=== PATIENT | female | born 1935 | race Caucasian/White ===

== ENCOUNTER 2018-10-01 15:15 | Observation (INO) ==
--- NOTE | 2018-10-01 15:39 | ERNOTE ---
Integumentary HPI - Narrative Date of Service: 10/01/18 - General Presenting Symptoms: other - cellulitis Time Seen by Provider: 10/01/18 15:26 Source: patient Exam Limitations: no limitations - Immun/Allergies/Home Medications Allergies/Adverse Reactions: Allergies Allergy/AdvReac Type Severity Reaction Status Date / Time cephalexin [Cephalexin] Allergy Unknown Verified 10/01/18 17:05 Sulfa (Sulfonamide Allergy Unknown Verified 10/01/18 17:05 Antibiotics) [Sulfa(Sulfonamide Antibiotics)] EDOUARD Inhibitors AdvReac Mild FEELS Verified 10/01/18 17:05 [Edouard Inhibitors] STRANGE, OUT OF IT codeine [Codeine] AdvReac Mild Headache Verified 10/01/18 17:05 iodine AdvReac Mild RASH Verified 10/01/18 17:05 latex AdvReac Mild RASH Verified 10/01/18 17:05 Home Medications: HOME MEDICATIONS ALPRAZolam [Xanax] 0.25 mg PO BID PRN 09/19/18 [Last Taken Unknown] Alendronate Sodium 35 mg PO Q7D 09/19/18 [Last Taken 09/30/18] Apixaban [Eliquis] 5 mg PO BID 09/19/18 [Last Taken Unknown] Atorvastatin Calcium [Lipitor] 80 mg PO HS 09/19/18 [Last Taken Unknown] Furosemide 20 mg PO DAILY 09/19/18 [Last Taken Unknown] Levothyroxine Sodium [Synthroid] 125 mcg PO DAILY 09/19/18 [Last Taken Unknown] Loperamide HCl [Anti-Diarrheal] 2 mg PO Q4H PRN 09/19/18 [Last Taken Unknown] Losartan Potassium [Cozaar] 50 mg PO DAILY 09/19/18 [Last Taken Unknown] Metoprolol Tartrate [Lopressor] 50 mg PO DAILY 09/19/18 [Last Taken Unknown] Nystatin/Triamcin [Nystatin-Triamcinolone Cream] 30 gm TOPICAL BID #1 cream..g. 09/19/18 [Last Taken Unknown] Omeprazole 20 mg PO DAILY 09/19/18 [Last Taken Unknown] hydrocortisone 1 % topical cream 1 applic TP BID-TID PRN #28 g 09/26/18 [Last Taken Unknown] Levofloxacin [Levaquin] 500 mg PO DAILY #7 tab 09/27/18 [Last Taken Unknown] - Pain Pain Score: 3 - History of Present Illness Narrative: The patient is a 83 year old female who presents for worsening left lower extremity redness and swelling which has been present for 1 week with progression for 2 days. There are associated symptoms of wound drainage. The patient reports pain to left lower leg, 3/10. There are no alleviating factors. There are no aggravating factors. Previous treatments have included: currently taking Levaquin. The past medical history includes: anxiety, liver cirrhosis, GERD, hepatitis, HTN, hypothyroid and osteoporosis. The social history is negative. The patient has had no ill contacts. Patient states that since yesterday redness, edema and discomfort have increased. Patient states that redness was previously the size of a palm localized to anterior lower leg. Location: Reports: lower extremity Review of Systems - Review of Systems Constitutional: Present: fatigue. Absent: fever, chills EYE: Present: no symptoms reported ENT: Present: no symptoms reported. Absent: ear pain, nasal drainage, sore throat Respiratory: Present: no symptoms reported. Absent: shortness of breath, cough Cardiology: Present: edema. Absent: chest pain Gastrointestinal/Abdominal: Present: nausea, eating less, drinking less. Absent: vomiting, diarrhea Genitourinary: Present: no symptoms reported Musculoskeletal: Present: no symptoms reported Skin: Present: change in color Neurological: Present: no symptoms reported All Other Systems: All systems neg except as marked Medical History (Last Reviewed 10/01/18 @ 15:48 by SHEFALI Le) Osteoporosis (Chronic) Onset Date: 10/21/17 Macular degeneration (Chronic) Onset Date: 05/13/17 Hypothyroidism (Chronic) Hypertension (Chronic) Onset Date: Unknown Hx of pancreatitis (Resolved) Onset Date: 01/29/12 Hepatitis (Resolved) Onset Date: 01/29/12 due to fatty liver GERD (gastroesophageal reflux disease) (Chronic) Onset Date: Unknown Frequent falls (Chronic) Onset Date: Unknown Cirrhosis of liver (Chronic) Onset Date: 07/08/12 Anxiety (Chronic) Onset Date: Unknown Bilateral bunions Callus of foot R 1st MT head, L 1st MT head, 5th MT head pared/Dr. Soto Hammer toes, bilateral History of falling Onychomycosis Toe pain, bilateral Fibrothecoma Onset Date: Unknown History of cholelithiasis Onset Date: 09/19/12 Laceration of hand Onset Date: 11/25/12 Surgical History: Surgical History (Last Reviewed 10/01/18 @ 15:48 by SHEFALI Le) History of bilateral mastectomy Onset Date: Unknown 1986, 1992 History of cataract surgery Onset Date: ~2002 History of colonoscopy Onset Date: ~2009 History of esophagogastroduodenoscopy Onset Date: ~2009 3 polyp removed History of knee replacement Onset Date: ~2006 left 2006, right unknown History of ovarian cystectomy Onset Date: ~1964 tumor on one, cyst on the other History of thyroid surgery Onset Date: ~1995 right lobe removed History of total abdominal hysterectomy Onset Date: ~2015 Family History: Family History (Last Reviewed 10/01/18 @ 15:48 by SHEFALI Le) Father CVA (cerebral vascular accident) Mother CHF (congestive heart failure) Social History: Preferred Language Slovenian Smoking Status Never smoker Alcohol Use none Drug Use none (Last Updated 09/28/18 @ 16:15 by Matilde Soto DPM) No Social History Section defined Progress - Date and Time Seen: Date and Time: 10/01/18 16:24 Discussed results and plan of care with patient for hospital admission with treatment with IV antibiotics. Discussed case with and admit due to progressive cellulitis and failed outpatient treatment. - Results and Orders Patient's Lab Results:: I have reviewed the patient's lab results. - Vital Signs Patient's Vital Signs:: I have reviewed the patient's vital signs. Vital Signs: Vital Signs 10/01/18 15:26 Temperature 36.5 C Pulse Rate 68 Respiratory Rate 16 Blood Pressure 110/71 O2 Sat by Pulse Oximetry 96 - Progress/Reassessment Chief Complaint: Cellulitis Departure Clinical Impression: Cellulitis of left lower leg, Failure of outpatient treatment - Departure Disposition: Still a patient Condition: Good
[2018-10-01 15:55] LABS: Hematocrit 36.3 % (37.0-47.0); Mean Cell Volume 93.1 fl (78-100); Mean Corpuscular Hemoglobin 30.8 pg (27-31); Mean Corpuscular Hgb Conc 33.1 g/dl (32-36); Mean Platelet Volume 8.7 fl (8-12.5); Neutrophil # 4.9 K/mm3 (1.3-6.0); Neutrophil % 67.2 % (42-75.0); Platelet Count 281 K/mm3 (150-450); Red Cell Distribution Width 13.2 % (11.5-14.0); White Blood Count 7.3 K/mm3 (4.0-10.5)
[2018-10-01 16:08] LABS: ALT 17 U/L (19-67); AST 15 U/L (0-48); Albumin * 3.5 gm/dl (3.4-5.0); Alkaline Phosphatase * 54 U/L (50-170); Anion Gap 11.3 mmol/L (6.8-13.8); BUN/Creatinine Ratio 13.9 (9.0-21.6); Bilirubin, Total 0.7 mg/dL (0.0-1.1); Blood Urea Nitrogen 10 mg/dL (3-23); Ca. Corrected For Albumin 8.4 mg/dL (8.4-10.2); Calcium * 8.3 mg/dL (7.9-10.9); Carbon Dioxide 29.2 mmol/L (24-32.6); Chloride 98 mmol/L (97-106); Glucose * 113 mg/dL (70-110); Potassium 3.5 mmol/L (3.4-4.6); Sodium 135 mmol/L (132-142); Total Protein 6.9 gm/dL (6.2-8.2)
[2018-10-01] MEDS ORDERED: CLINDAMYCIN PHOSPHATE 600 MG in DEXTROSE 5 % IN WATER 100 ML IV ONE ×2 (16:23)
--- NOTE | 2018-10-01 17:37 | HP ---
Chief Complaint - Chief Complaint Date of Service: 10/01/18 Time of Service: 17:25 Chief Complaint: cellulitis History of Present Illness: Patient who is a resident of the [facility] presented to the ER for worsening cellulitis. She was seen and examined at bedside, and no family members present. She is unable to state her medical problems. She was started on Levaquin approximately 5 days ago for some anterior left lower leg redness, however the redness has expanded and is almost all the way around her lower leg. She reports having this same presentation multiple times over the past few years. Medical History (Last Reviewed 10/01/18 @ 17:05 by Terese Grimes RN) Osteoporosis (Chronic) Onset Date: 10/21/17 Macular degeneration (Chronic) Onset Date: 05/13/17 Hypothyroidism (Chronic) Hypertension (Chronic) Onset Date: Unknown Hx of pancreatitis (Resolved) Onset Date: 01/29/12 Hepatitis (Resolved) Onset Date: 01/29/12 due to fatty liver GERD (gastroesophageal reflux disease) (Chronic) Onset Date: Unknown Frequent falls (Chronic) Onset Date: Unknown Cirrhosis of liver (Chronic) Onset Date: 07/08/12 Anxiety (Chronic) Onset Date: Unknown Bilateral bunions Callus of foot R 1st MT head, L 1st MT head, 5th MT head pared/Dr. Soto Hammer toes, bilateral History of falling Onychomycosis Toe pain, bilateral Fibrothecoma Onset Date: Unknown History of cholelithiasis Onset Date: 09/19/12 Laceration of hand Onset Date: 11/25/12 Surgical History: Surgical History (Last Reviewed 10/01/18 @ 17:05 by Terese Grimes RN) History of bilateral mastectomy Onset Date: Unknown 1986, 1992 History of cataract surgery Onset Date: ~2002 History of colonoscopy Onset Date: ~2009 History of esophagogastroduodenoscopy Onset Date: ~2009 3 polyp removed History of knee replacement Onset Date: ~2006 left 2006, right unknown History of ovarian cystectomy Onset Date: ~1964 tumor on one, cyst on the other History of thyroid surgery Onset Date: ~1995 right lobe removed History of total abdominal hysterectomy Onset Date: ~2015 Family History: Family History (Last Reviewed 10/01/18 @ 17:05 by Terese Grimes RN) Father CVA (cerebral vascular accident) Mother CHF (congestive heart failure) Social History: Patient Lives/Resources Jennifer Utilized Preferred Language Uzbek Do you have any zoroastrianism or No cultural preference? Smoking Status Never smoker Have you smoked in the past 12 No months Alcohol Use none Drug Use none (Last Updated 09/28/18 @ 16:15 by Matilde Soto DPM) No Social History Section defined Review Of Systems (GEN) - Review of Systems Generalized/Overall Review: Absent: Fever Respiratory: Absent: Cough, Shortness of Breath Cardiac: Present: Edema. Absent: Chest Pain Abdominal: Absent: Nausea, Diarrhea Genitourinary: Absent: Dysuria Skin: Present: Other - erythema, swelling Allergies/Adverse Reactions: Allergies Allergy/AdvReac Type Severity Reaction Status Date / Time cephalexin [Cephalexin] Allergy Unknown Verified 10/01/18 17:05 Sulfa (Sulfonamide Allergy Unknown Verified 10/01/18 17:05 Antibiotics) [Sulfa(Sulfonamide Antibiotics)] EDOUARD Inhibitors AdvReac Mild FEELS Verified 10/01/18 17:05 [Edouard Inhibitors] STRANGE, OUT OF IT codeine [Codeine] AdvReac Mild Headache Verified 10/01/18 17:05 iodine AdvReac Mild RASH Verified 10/01/18 17:05 latex AdvReac Mild RASH Verified 10/01/18 17:05 Home Medications: HOME MEDICATIONS ALPRAZolam [Xanax] 0.25 mg PO BID PRN 09/19/18 [Last Taken Unknown] Alendronate Sodium 35 mg PO Q7D 09/19/18 [Last Taken 09/30/18] Apixaban [Eliquis] 5 mg PO BID 09/19/18 [Last Taken Unknown] Atorvastatin Calcium [Lipitor] 80 mg PO HS 09/19/18 [Last Taken Unknown] Furosemide 20 mg PO DAILY 09/19/18 [Last Taken Unknown] Levothyroxine Sodium [Synthroid] 125 mcg PO DAILY 09/19/18 [Last Taken Unknown] Loperamide HCl [Anti-Diarrheal] 2 mg PO Q4H PRN 09/19/18 [Last Taken Unknown] Losartan Potassium [Cozaar] 50 mg PO DAILY 09/19/18 [Last Taken Unknown] Metoprolol Tartrate [Lopressor] 50 mg PO DAILY 09/19/18 [Last Taken Unknown] Nystatin/Triamcin [Nystatin-Triamcinolone Cream] 30 gm TOPICAL BID #1 cream..g. 09/19/18 [Last Taken Unknown] Omeprazole 20 mg PO DAILY 09/19/18 [Last Taken Unknown] hydrocortisone 1 % topical cream 1 applic TP BID-TID PRN #28 g 09/26/18 [Last Taken Unknown] Levofloxacin [Levaquin] 500 mg PO DAILY #7 tab 09/27/18 [Last Taken Unknown] Exam - Exam Vital Signs: Vital Signs - Last Taken Temp 36.7 C 10/01/18 16:50 Pulse 78 10/01/18 16:50 Resp 14 10/01/18 16:50 BP 178/76 H 10/01/18 16:50 Pulse Ox 97 10/01/18 16:50 Constitutional: Present: Alert, Cooperative, Elderly - appears comfortable Respiratory: Present: normal breath sounds, no respiratory distress Cardiovascular/Chest: Present: regular rate, rhythm Abdomen: Present: soft, nontender Extremity: Present: lower extremity edema - 2+ bilaterally Skin Exam: Present: other - circumferential erythema of left lower leg from ankle to mid lower leg. Proximal border outlined in the ED. Large horseshoe shaped indentation of left lower lateral region Diagnostic Studies: Abnormal Lab Results 10/01/18 10/01/18 10/01/18 Range/Units 15:40 15:40 15:40 RBC 3.90 L (4.2-5.4) M/mm3 Hgb 12.0 L (12.5-16.0) gm/dL Hct 36.3 L (37.0-47.0) % Immature Gran % (Auto) 0.50 H (0.001-0.429) % Immature Gran # (Auto) 0.04 H (0.000-0.0310) K/mm3 ESR 18 H (0-15) mm/hr Random Glucose 113 H (70-110) mg/dL ALT 17 L (19-67) U/L Laboratory Results WBC 7.3 K/mm3 (4.0-10.5) 10/01/18 15:40 RBC 3.90 M/mm3 (4.2-5.4) L 10/01/18 15:40 Hgb 12.0 gm/dL (12.5-16.0) L 10/01/18 15:40 Hct 36.3 % (37.0-47.0) L 10/01/18 15:40 MCV 93.1 fl (78-100) 10/01/18 15:40 MCH 30.8 pg (27-31) 10/01/18 15:40 MCHC 33.1 g/dl (32-36) 10/01/18 15:40 RDW 13.2 % (11.5-14.0) 10/01/18 15:40 Plt Count 281 K/mm3 (150-450) 10/01/18 15:40 MPV 8.7 fl (8-12.5) 10/01/18 15:40 Immature Gran % (Auto) 0.50 % (0.001-0.429) H 10/01/18 15:40 Immature Gran # (Auto) 0.04 K/mm3 (0.000-0.0310) H 10/01/18 15:40 Neutrophils % 67.2 % (42-75.0) 10/01/18 15:40 Lymphocytes % 22.1 % (20-51) 10/01/18 15:40 Monocytes % 8.7 % (0.0-9) 10/01/18 15:40 Eosinophils % 1.1 % (0.0-3.0) 10/01/18 15:40 Basophils % 0.4 % (0.0-1.0) 10/01/18 15:40 Nucleated RBC % 0.0 k/mm3 (0-1) 10/01/18 15:40 Neutrophils # 4.9 K/mm3 (1.3-6.0) 10/01/18 15:40 Lymphocytes # 1.62 k/mm3 (1.5-3.5) 10/01/18 15:40 Monocytes # 0.6 k/mm3 (0.0-1.0) 10/01/18 15:40 Eosinophils # 0.1 k/mm3 (0.0-0.7) 10/01/18 15:40 Absolute Basophils 0.0 k/mm3 (0.0-0.1) 10/01/18 15:40 ESR 18 mm/hr (0-15) H 10/01/18 15:40 Sodium 135 mmol/L (132-142) 10/01/18 15:40 Plasma Sodium 135 mmol/L (130-142) 10/01/18 15:40 Potassium 3.5 mmol/L (3.4-4.6) 10/01/18 15:40 Chloride 98 mmol/L (97-106) 10/01/18 15:40 Carbon Dioxide 29.2 mmol/L (24-32.6) 10/01/18 15:40 Anion Gap 11.3 mmol/L (6.8-13.8) 10/01/18 15:40 BUN 10 mg/dL (3-23) 10/01/18 15:40 Creatinine 0.72 mg/dL (0.4-1.4) 10/01/18 15:40 Est GFR (Non-Af Amer) 82 mL/min (60-130) D 10/01/18 15:40 BUN/Creatinine Ratio 13.9 (9.0-21.6) 10/01/18 15:40 Random Glucose 113 mg/dL (70-110) H 10/01/18 15:40 Calcium 8.3 mg/dL (7.9-10.9) 10/01/18 15:40 Calcium Adj for Albumin 8.4 mg/dL (8.4-10.2) 10/01/18 15:40 Total Bilirubin 0.7 mg/dL (0.0-1.1) 10/01/18 15:40 AST 15 U/L (0-48) 10/01/18 15:40 ALT 17 U/L (19-67) L 10/01/18 15:40 Alkaline Phosphatase 54 U/L (50-170) 10/01/18 15:40 C-Reactive Prot, Quant Less than 0.2 mg/dL (0.0-0.9) 10/01/18 15:40 Total Protein 6.9 gm/dL (6.2-8.2) 10/01/18 15:40 Albumin 3.5 gm/dl (3.4-5.0) 10/01/18 15:40 Assessment/Plan - Narrative Narrative: Of note, she is prescribed metoprolol and Eliquis. The metoprolol may be for blood pressure, however did not have a definitive diagnosis for the Eliquis. History of PE as listed in her chart, however no imaging available. She is unable to offer further insight regarding her past medical history. Chart review shows there was a short time where she was seen by a physician in [place], and there is a chance she may have had the PE diagnosed by that physician. We will attempt to verify her medications at her pharmacy. - Assessment/Plan (1) Cellulitis of left lower leg Assessment: She was started on Levaquin, but her cellulitis worsened. Clindamycin was started in the ER, and her erythema appears to have regressed from the demarcated line drawn in the ER. We will continue every 6 hours clindamycin and reassess in the morning. She is afebrile and white blood cell count not elevated at 7.3. She has some swelling also of her bilateral lower extremities. She is prescribed 20 mg p.o. Lasix daily. Will administer 20 mg IV Lasix tonight, and potentially give 40 mg IV Lasix in the morning. Problem: Acute (2) Failure of outpatient treatment Problem: Acute (3) Hypertension Assessment: Continue home losartan. Her blood pressure readings have fluctuated quite a bit since admission. Problem: Chronic (4) Hypothyroidism Assessment: Continue home levothyroxine. Problem: Chronic (5) GERD (gastroesophageal reflux disease) Problem: Chronic
[2018-10-01] MEDS ORDERED: ALPRAZolam 0.25 MG TABLET PO PRN (17:44)
[2018-10-01] MEDS ORDERED: FUROSEMIDE 10 MG/ML VIAL IV ONE (17:45)
[2018-10-01] MEDS ORDERED: LOPERAMIDE HCL 2 MG CAPSULE PO PRN (18:22)
[2018-10-01] MEDS ORDERED: ROSUVASTATIN CALCIUM 10 MG TABLET ONE (20:17)
[2018-10-01] MEDS: APIXABAN 5 MG TABLET PO SCH (20:23)
[2018-10-01] MEDS: ROSUVASTATIN CALCIUM 20 MG TABLET PO SCH (20:27)
[2018-10-01] MEDS: CLINDAMYCIN PHOSPHATE 600 MG in DEXTROSE 5 % IN WATER 100 ML IV SCH ×2 (23:04)
[2018-10-02] MEDS: CLINDAMYCIN PHOSPHATE 600 MG in DEXTROSE 5 % IN WATER 100 ML IV SCH ×8 (04:41→22:38)
[2018-10-02] MEDS: LEVOTHYROXINE SODIUM 125 MCG TABLET PO SCH (07:41)
[2018-10-02] MEDS: PANTOPRAZOLE SODIUM 20 MG TABLET.DR PO SCH (07:41)
[2018-10-02] MEDS: APIXABAN 5 MG TABLET PO SCH ×2 (08:50→20:49)
[2018-10-02] MEDS: LOSARTAN POTASSIUM 50 MG TABLET PO SCH (08:50)
[2018-10-02] MEDS: METOPROLOL TARTRATE 50 MG TABLET PO SCH (08:50)
[2018-10-02] MEDS: FUROSEMIDE 10 MG/ML VIAL IV SCH (09:54)
--- NOTE | 2018-10-02 12:16 | PN ---
Subjective - Date and Time Seen Date: 10/02/18 Time: 12:03 Subjective Narrative: Patient feels like her leg isn't as hot as yesterday. She still has some swelling. Objective - Review of Systems Generalized/Overall Review: Denies: Fever Respiratory: Reports: No Symptoms Reported Abdominal: Reports: No Symptoms Reported Skin: Reports: Change in Color - erythema - Vitals Vitals: Last Vital Signs Temp 37.0 C 10/02/18 10:47 Pulse 65 10/02/18 10:47 Resp 16 10/02/18 10:47 BP 117/57 10/02/18 10:47 Pulse Ox 98 10/02/18 10:47 - Abnormal Lab Findings Abnormal Lab Findings: Abnormal Lab Results 10/01/18 10/01/18 10/01/18 Range/Units 15:40 15:40 15:40 RBC 3.90 L (4.2-5.4) M/mm3 Hgb 12.0 L (12.5-16.0) gm/dL Hct 36.3 L (37.0-47.0) % Immature Gran % (Auto) 0.50 H (0.001-0.429) % Immature Gran # (Auto) 0.04 H (0.000-0.0310) K/mm3 ESR 18 H (0-15) mm/hr Random Glucose 113 H (70-110) mg/dL ALT 17 L (19-67) U/L - Exam Constitutional: Present: Alert, Cooperative Respiratory: Present: normal breath sounds, no respiratory distress Cardiovascular/Chest: Present: regular rate, rhythm Abdomen: Present: soft, nontender Extremity: Present: lower extremity edema - 2+ bilaterally, slight improvement from yesterday Skin Exam: Present: other - erythematous region no longer as pink as yesterday, similar distribution with slight regression Eye contact: Present: cooperative Assessment/Plan Plan Narrative: Called the [facility] to obtain her PMHx and reason for the Eliquis. Left a message for the on-call nurse to call the hospital with this info. - Problems/Diagnosis (1) Cellulitis of left lower leg Problem: Acute Narrative: She seems to be improving on IV cipro. Will also administer 40 mg IV lasix, as decreased swelling will help healing. She was started on po levaquin prior to admission, with worsening of her erythema. (2) Failure of outpatient treatment Problem: Acute (3) Hypertension Problem: Chronic (4) Hypothyroidism Problem: Chronic (5) GERD (gastroesophageal reflux disease) Problem: Chronic
[2018-10-02] MEDS: ROSUVASTATIN CALCIUM 20 MG TABLET PO SCH (20:49)
[2018-10-03] MEDS: CLINDAMYCIN PHOSPHATE 600 MG in DEXTROSE 5 % IN WATER 100 ML IV SCH ×4 (04:31→10:21)
[2018-10-03] MEDS: LEVOTHYROXINE SODIUM 125 MCG TABLET PO SCH (06:29)
[2018-10-03] MEDS: PANTOPRAZOLE SODIUM 20 MG TABLET.DR PO SCH (06:29)
[2018-10-03] MEDS: APIXABAN 5 MG TABLET PO SCH (08:12)
[2018-10-03] MEDS: METOPROLOL TARTRATE 50 MG TABLET PO SCH (08:12)
[2018-10-03] MEDS: LOSARTAN POTASSIUM 50 MG TABLET PO SCH (08:12)
[2018-10-03] MEDS: FUROSEMIDE 10 MG/ML VIAL IV SCH (08:17)
--- NOTE | 2018-10-03 10:41 | DS ---
(1) Cellulitis of left lower leg Problem: Acute (2) Failure of outpatient treatment Problem: Resolved (3) Hypertension Problem: Chronic (4) Hypothyroidism Problem: Chronic (5) GERD (gastroesophageal reflux disease) Problem: Chronic Description of Stay: Patient presented to the ER for worsening cellulitis. She was started on Levaquin approximately 5 days prior to admission for some anterior left lower leg redness, however the redness expanded and was almost circumferential. She reports having this same presentation multiple times over the past few years. She was also noted to have significant lower extremity swelling. She was afebrile and white blood cell count not elevated. She was started on IV clindamycin, and improved over her 2-day admission. She was also given IV Lasix and her swelling also improved. We will discharge her on an increased dose of Lasix, 40 mg p.o. daily. She did not have any difficulty eating drinking, or ambulating to the bathroom during her stay. We will continue p.o. clindamycin for 7 additional days. Procedures Performed: none Results and Findings: Pending Mircobiology Results 10/01/18 15:57 Blood Blood Culture - Preliminary NO GROWTH 24 HOURS 10/01/18 15:40 Blood Blood Culture - Preliminary NO GROWTH 24 HOURS Lab Pending Results 10/01/18 15:40: WBC 7.3, RBC 3.90 L, Hgb 12.0 L, Hct 36.3 L, MCV 93.1, MCH 30.8, MCHC 33.1, RDW 13.2, Plt Count 281, MPV 8.7, Immature Gran % (Auto) 0.50 H, Immature Gran # (Auto) 0.04 H, Neutrophils % 67.2, Lymphocytes % 22.1, Monocytes % 8.7, Eosinophils % 1.1, Basophils % 0.4, Nucleated RBC % 0.0, Neutrophils # 4.9, Lymphocytes # 1.62, Monocytes # 0.6, Eosinophils # 0.1, Absolute Basophils 0.0 10/01/18 15:40: ESR 18 H 10/01/18 15:40: Sodium 135, Plasma Sodium 135, Potassium 3.5, Chloride 98, Carbon Dioxide 29.2, Anion Gap 11.3, BUN 10, Creatinine 0.72, Est GFR (Non-Af Amer) 82 D, BUN/Creatinine Ratio 13.9, Random Glucose 113 H, Calcium 8.3, Calcium Adj for Albumin 8.4, Total Bilirubin 0.7, AST 15, ALT 17 L, Alkaline Phosphatase 54, C-Reactive Prot, Quant Less than 0.2, Total Protein 6.9, Albumin 3.5 Discharge Location: [facility] [address] Disposition: Home self-care Condition: Good Discharge Activity: Activity as tolerated Discharge Diet: General/regular food Referrals: Rozina Guillen MD [Primary Care Provider] - One Week Additional Patient Instructions (free text): -Please make TCM appointment unless detention discharge. Thank you! Yana @ [phone]. Prescriptions (Any new or edited meds): Clindamycin HCl [Cleocin HCl] 300 mg PO Q8H #21 cap Furosemide 40 mg PO DAILY #30 tab Complete Home Medications List: Complete Home Medication List: ALPRAZolam [Xanax] 0.25 mg PO BID PRN 09/19/18 Alendronate Sodium 35 mg PO Q7D 09/19/18 Apixaban [Eliquis] 5 mg PO BID 09/19/18 Atorvastatin Calcium [Lipitor] 80 mg PO HS 09/19/18 Levothyroxine Sodium [Synthroid] 125 mcg PO DAILY 09/19/18 Loperamide HCl [Anti-Diarrheal] 2 mg PO Q4H PRN 09/19/18 Losartan Potassium [Cozaar] 50 mg PO DAILY 09/19/18 Metoprolol Tartrate [Lopressor] 50 mg PO DAILY 09/19/18 Nystatin/Triamcin [Nystatin-Triamcinolone Cream] 30 gm TOPICAL BID #1 cream..g. 09/19/18 Omeprazole 20 mg PO DAILY 09/19/18 hydrocortisone 1 % topical cream 1 applic TP BID-TID PRN #28 g 09/26/18 Levofloxacin [Levaquin] 500 mg PO DAILY #7 tab 09/27/18 Clindamycin HCl [Cleocin HCl] 300 mg PO Q8H #21 cap 10/03/18 Furosemide 40 mg PO DAILY #30 tab 10/03/18
[2018-10-03 13:46] VITALS: BP 142/84
== END 2018-10-03 13:30 | disposition home or self-care (01) ==
LOC: ER 15:15 → MS 15:15
PROVIDERS: ADMIT Family Medicine; ATTEND Family Medicine
CPT/HCPCS: 36415; 80053; 85025; 85652; 86140; 87040; 87081; 96365; 96366; 96375; 99285; G0378